=== PATIENT | female | born 1990 | race Two or more races ===

== ENCOUNTER 2020-09-12 18:52 | Emergency (ER) | payer MEDICAID, OTHER ==
[~2020-09-12] VITALS: Ht 157.5 cm; Wt 77.1 kg
[2020-09-12] MEDS ORDERED: HYDROcodone-ACET 5/325MG TAB PO ONE (22:15)
[2020-09-13 01:21] VITALS: BP 124/77
== END 2020-09-13 01:30 | disposition home or self-care (01) ==
LOC: EDBD 18:52 → ER 18:54
DX: S00.531A Contusion of lip, initial encounter (principal); V43.52XA Car driver injured in collision with other type car in traffic accident, initial encounter; Y93.89 Activity, other specified; Y92.89 Other specified places as the place of occurrence of the external cause; Y99.8 Other external cause status
CPT/HCPCS: 36415; 70450; 71250; 72125; 74176; 84702